=== PATIENT | female | born 1970 | race Caucasian/White ===

== ENCOUNTER → 2016-04-10 09:15 | Outpatient (CLI) | payer MEDICAID ==
[2015-02-01 10:11] VITALS: BMI 36.2
[~2016-04-10 09:15] MED LIST: CATAFLAM50 MG PO; DESERYL100 MG PO; GALZIN50 MG PO; HYDROCODONE-APA1 TAB PO; PROZAC40 MG PO; VENTOLIN HFA18 GM INH; VOLTAREN100 MG PO; XANAX1 MG PO; ZANAFLEX4 MG PO
== END | disposition home or self-care (01) ==
LOC: D.MRI 09:15
DX: M54.2 Cervicalgia (principal)

== ENCOUNTER 2016-10-11 17:37 | Emergency (ER) | payer MEDICAID ==
[2015-02-01 10:11] VITALS: BMI 36.2
== END 2016-10-11 19:42 | disposition home or self-care (01) ==
LOC: D.ER 17:37
DX: S16.1XXA Strain of muscle, fascia and tendon at neck level, initial encounter (principal); X58.XXXA Exposure to other specified factors, initial encounter; Y93.89 Activity, other specified; Y92.89 Other specified places as the place of occurrence of the external cause; S70.02XA Contusion of left hip, initial encounter; S40.012A Contusion of left shoulder, initial encounter; F17.200 Nicotine dependence, unspecified, uncomplicated; M54.2 Cervicalgia; M54.9 Dorsalgia, unspecified

== ENCOUNTER 2016-11-07 14:54 | Emergency (ER) | payer MEDICAID ==
[2015-02-01 10:11] VITALS: BMI 36.2
== END 2016-11-07 17:53 | disposition home or self-care (01) ==
LOC: D.ER 14:54
DX: S90.32XA Contusion of left foot, initial encounter (principal); W22.09XA Striking against other stationary object, initial encounter; Y93.89 Activity, other specified; Y92.013 Bedroom of single-family (private) house as the place of occurrence of the external cause; S93.602A Unspecified sprain of left foot, initial encounter; F17.200 Nicotine dependence, unspecified, uncomplicated

== ENCOUNTER 2016-12-05 17:23 | Emergency (ER) | payer MEDICAID ==
[2015-02-01 10:11] VITALS: BMI 36.2
== END 2016-12-05 18:43 | disposition home or self-care (01) ==
LOC: D.ER 17:23
DX: M79.672 Pain in left foot (principal); F17.200 Nicotine dependence, unspecified, uncomplicated

== ENCOUNTER → 2017-02-18 11:14 | Outpatient (CLI) | payer MEDICAID ==
[2015-02-01 10:11] VITALS: BMI 36.2
== END | disposition home or self-care (01) ==
LOC: D.MRI 11:14
DX: M79.672 Pain in left foot (principal); R22.42 Localized swelling, mass and lump, left lower limb; M54.5 Low back pain

== ENCOUNTER 2017-08-20 15:06 | Emergency (ER) | payer MEDICAID ==
[~2017-08-20] VITALS: Ht 172.7 cm; Wt 117.7 kg
[2017-08-20 15:48] VITALS: Ht 172.7 cm; Wt 117.7 kg
[2017-08-20] MEDS ORDERED: LATUDA40 MG PO (15:50)
[2017-08-20] MEDS ORDERED: NEURONTIN 300300 MG PO (15:50)
[2017-08-20] MEDS ORDERED: MOBIC7.5 MG PO (15:50)
[2017-08-20 19:08] LABS: BASOPHILS 0.2 % (0-2); EOSINOPHILS 2.6 % (0-7); HEMATOCRIT 35.7 % (36.0-48.0); HEMOGLOBIN 11.7 g/dL (12-16); IMMATURE GRANULOCYTES 0.2 % (0-5); LYMPHOCYTES 39.3 % (15-50); MCH 27.3 pg (26.0-34.0); MCHC 32.8 g/dL (31.0-37.0); MCV 83.4 fL (80.0-100.0); MEAN PLATELET VOLUME 9.7 fL (7.4-10.4); NEUTROPHILS 50.7 % (40-80); PLATELET COUNT 278 10x3/uL (130-400); RBC 4.28 10x6/uL (4.00-5.40); WBC 6.2 10x3/uL (4.8-10.8)
[2017-08-20 19:29] LABS: ALBUMIN 3.4 g/dL (3.4-5.0); ALKALINE PHOSPHATASE 111 U/L (46-116); ALT (SGPT) 44 U/L (10-68); BILIRUBIN - TOTAL 0.16 mg/dL (0.2-1.3); CALC OSMOLALITY 281 mosm/kg (275-300); CALCIUM 8.9 mg/dL (8.5-10.1); CARBON DIOXIDE 28.2 mmol/L (21.0-32.0); CHLORIDE - SERUM 104 mmol/L (98-107); CREATININE - SERUM 0.8 mg/dL (0.6-1.3); GLUCOSE 127 mg/dL (74-106); POTASSIUM - SERUM 3.7 mmol/L (3.5-5.1); PROTEIN - SERUM 7.1 g/dL (6.4-8.2); SODIUM 141 mmol/L (136-145); UREA NITROGEN 10 mg/dL (7-18); eGFR NON AFRICAN AMERICAN 81 mL/min (90-120)
[2017-08-20] MEDS ORDERED: BENZONATATE200 MG PO (20:58)
[2017-08-20 21:17] VITALS: BP 136/68
[2017-08-24 06:14] LABS: HEPATITIS C ANTIBODY <0.1 (0.0-0.9)
== END 2017-08-20 21:17 | disposition left against medical advice (07) ==
LOC: D.ER 15:06
PROVIDERS: Emergency Medicine; Family Medicine
DX: R76.11 Nonspecific reaction to tuberculin skin test without active tuberculosis (principal); R05 Cough; Z20.1 Contact with and (suspected) exposure to tuberculosis; F17.200 Nicotine dependence, unspecified, uncomplicated

== ENCOUNTER 2017-10-03 13:20 | Emergency (ER) | payer MEDICAID ==
[~2017-10-03] VITALS: Ht 172.7 cm; Wt 113.6 kg
[~2017-10-03 13:20] MED LIST changes: +BENZONATATE200 MG PO; +LATUDA40 MG PO; +MOBIC7.5 MG PO; +NEURONTIN 300300 MG PO
[2017-10-03 13:26] VITALS: Ht 172.7 cm; Wt 113.6 kg
[2017-10-03] MEDS ORDERED: VISTARIL25 MG PO (15:29)
[2017-10-03 15:33] VITALS: BP 136/082
== END 2017-10-03 15:34 | disposition home or self-care (01) ==
LOC: D.ER 13:20
DX: T78.49XA Other allergy, initial encounter (principal); X58.XXXA Exposure to other specified factors, initial encounter; F17.200 Nicotine dependence, unspecified, uncomplicated

== ENCOUNTER 2017-10-14 23:00 | Emergency (ER) | payer MEDICAID ==
[~2017-10-14] VITALS: Ht 172.7 cm; Wt 113.6 kg
[~2017-10-14 23:00] MED LIST changes: +VISTARIL25 MG PO
[2017-10-14 23:14] VITALS: Ht 172.7 cm; Wt 113.6 kg
[2017-10-15] MEDS ORDERED: CYCLOBENZAPRINE10 MG PO (01:03)
[2017-10-15] MEDS ORDERED: EC-NAPROSYN500 MG PO (01:03)
[2017-10-15 01:39] VITALS: BP 122/60
== END 2017-10-15 01:39 | disposition home or self-care (01) ==
LOC: D.ER 23:00
DX: S39.012A Strain of muscle, fascia and tendon of lower back, initial encounter (principal); X58.XXXA Exposure to other specified factors, initial encounter; Y93.89 Activity, other specified; Y92.019 Unspecified place in single-family (private) house as the place of occurrence of the external cause; M54.31 Sciatica, right side; F17.200 Nicotine dependence, unspecified, uncomplicated

== ENCOUNTER 2018-06-07 11:06 | Inpatient (IN) | payer MEDICAID ==
[~2018-06-07] VITALS: Ht 172.7 cm; Wt 93.2 kg
[2018-06-07] VITALS (7 sets, daily range): BP systolic 110–142; BP diastolic 37–68; Ht 172.7 cm; Wt 93.2 kg
[~2018-06-07 11:06] MED LIST changes: +CYCLOBENZAPRINE10 MG PO; +EC-NAPROSYN500 MG PO
--- NOTE | 2018-06-07 11:47 | NUR ---
PT CONTINUES TO BE VERY DROWSY AND FALLS ASLEEP DURING CONVERSATION. NARCAN 0.4 MG ADMIN SIVP, MORE ALERT, EYES OPENED POST NEWS WRITER
--- NOTE | 2018-06-07 11:49 | NUR ---
LAB AT FOR LAB DRAW
[2018-06-07 12:17] LABS: BASOPHILS 0.1 % (0-2); EOSINOPHILS 1.7 % (0-7); HEMATOCRIT 32.2 % (36.0-48.0); HEMOGLOBIN 10.4 g/dL (12-16); IMMATURE GRANULOCYTES 0.2 % (0-5); LYMPHOCYTES 16.3 % (15-50); MCH 27.6 pg (26.0-34.0); MCHC 32.3 g/dL (31.0-37.0); MCV 85.4 fL (80.0-100.0); MEAN PLATELET VOLUME 9.5 fL (7.4-10.4); MONOCYTES 8.2 % (2-11); NEUTROPHILS 73.5 % (40-80); PLATELET COUNT 271 10x3/uL (130-400); RBC 3.77 10x6/uL (4.00-5.40); RDW 14.6 % (11.5-14.5); WBC 12.8 10x3/uL (4.8-10.8)
[2018-06-07 12:25] LABS: ALBUMIN 3.3 g/dL (3.4-5.0); ALKALINE PHOSPHATASE 87 U/L (46-116); ALT (SGPT) 29 U/L (10-68); BILIRUBIN - TOTAL 0.23 mg/dL (0.2-1.3); CALC OSMOLALITY 274 mosm/kg (275-300); CALCIUM 8.6 mg/dL (8.5-10.1); CARBON DIOXIDE 29.4 mmol/L (21.0-32.0); CHLORIDE - SERUM 99 mmol/L (98-107); CREATININE - SERUM 1.6 mg/dL (0.6-1.3); GLUCOSE 146 mg/dL (74-106); PROTEIN - SERUM 6.6 g/dL (6.4-8.2); SODIUM 134 mmol/L (136-145); UREA NITROGEN 25 mg/dL (7-18); eGFR NON AFRICAN AMERICAN 36 mL/min (90-120)
[2018-06-07 12:36] LABS: AMYLASE - SERUM 34 U/L (25-115); CKMB 1.1 U/L (0.0-3.6); LIPASE 192 U/L (73-393); MAGNESIUM - SERUM 1.8 mg/dL (1.8-2.4); TROPONIN-I < 0.017 ng/mL (0.000-0.060)
--- NOTE | 2018-06-07 13:13 | NUR ---
TO CT VIA STRETCHER WITH LOAN AUDITOR PT AWAKE ALERT AND TAKATIVE. AMB TO BR BUT FAILED TO OBTAIN URINE SPECIMEN
--- NOTE | 2018-06-07 13:43 | NUR ---
RTN FROM CT. AMB TO BR WITH STEADY GAIT FOR UA
--- NOTE | 2018-06-07 13:50 | NUR ---
URINE SPECIMEN OBTAINED, LABELED AT BS AND SENT TO LAB
[2018-06-07 14:04] LABS: APPEARANCE CLEAR (CLEAR); BILIRUBIN NEGATIVE (NEGATIVE); COLOR STRAW (YELLOW); GLUCOSE NEGATIVE (NEGATIVE); KETONE NEGATIVE (NEGATIVE); NITRITE POSITIVE (NEGATIVE); PROTEIN NEGATIVE (NEGATIVE); SPECIFIC GRAVITY 1.015 (1.005-1.020); UROBILINOGEN NORMAL (NORMAL)
[2018-06-07 14:06] LABS: BACTERIA MODERATE /hpf (NONE SEEN); EPITHELIAL CELLS 0-5 /hpf (0-5); RED CELLS - URINE 0-5 /hpf (0-5); WHITE CELLS - URINE 0-5 /hpf (0-5)
[2018-06-07 14:08] LABS: UDS - AMPHET NEGATIVE QUAL (NEGATIVE); UDS - BARB NEGATIVE QUAL (NEGATIVE); UDS - BENZO POSITIVE QUAL (NEGATIVE); UDS - COCAINE NEGATIVE QUAL (NEGATIVE); UDS - OPIATE POSITIVE QUAL (NEGATIVE); UDS - PCP NEGATIVE QUAL (NEGATIVE); UDS - THC POSITIVE QUAL (NEGATIVE)
--- NOTE | 2018-06-07 17:17 | MORECARE ---
CASE MANAGEMENT DISCHARGE SUMMARY PATIENT: GALINDO HERRON UNIT: [id number] ADM DATE: 06/07/18 AGE: 48 : 66 SEX: F ROOM/BED: D.2216 AUTHOR: MALDONADODOC PHYSICIAN: REFERRING PHYSICIAN: ANAHI MARQUES MD DATE OF SERVICE: 06/07/18 Discharge Plan Patient Name: GALINDO HERRON Facility: [facility]:[place] : 1970 Planned Disposition: Home Anticipated Discharge Date: 06/09/18 Discharge Date: Expected LOS: 2 Initial Reviewer: [email or web address] Initial Review Date: 06/07/2018 Generated: 06/07/18 6:17 pm DCP- Discharge Planning Updated by [email or web address]: Perla Angulo on 06/07/18 4:[address] Patient Name: GALINDO HERRON Admission Status: ER Accout number: [id number] Admission Date: 06-07-2018 : 1970 Admission Diagnosis: Attending: ANAHI MARQUES Current LOS: 1 Anticipated DC Date: 06-09-2018 Planned Disposition: Home Primary Insurance: MEDICAID [place] Discharge Planning Comments: CM met with patient and her , Ricky Richards to complete initial dc planning assessment. CM educated patient on the CM role and verbal consent given by patient to complete assessment. Patient lives at home with her and is independent in her care. At discharge patient plans to return home and feels this is a safe discharge. CM discussed availability of home health, rehab services, and medical equipment. Patient denied known discharge needs at this time. CM will continue to follow and will assist as needed with dc plans/needs. Cycle Director: Perla Angulo RN, [facility] DCPIA - Discharge Planning Initial Assessment Updated by [email or web address]: Perla Angulo on 06/07/18 5:10 pm * Is the patient Alert and Oriented? Yes * How many steps to enter\exit or inside your home? None * PCP Dr. Bedoya * Pharmacy [facility] [address] * Preadmission Environment Home with Family * ADLs Independent * Equipment None * List name and contact numbers for known caregivers / representatives who currently or will assist patient after discharge: Ricky Richards - - [phone] Randal Herron - daughter - [phone] * Verbal permission to speak to the caregivers and representatives has been obtained from the patient. Yes * Community resources currently utilized None * Additional services required to return to the preadmission environment? No * Can the patient safely return to the preadmission environment? Yes * Has this patient been hospitalized within the prior 30 days at any hospital? No Patient Name: GALINDO HERRON Page [id number] at 1717 All edits/amendments must be made on the electronic document DICTATION DATE: 06/07/181716 STERILE PROCESS COORDINATOR: SKYE 06/07/181716 RPT#: [id number] DC DATE: STATUS: ADM IN [facility] [address] [place] [address] END OF REPORT
--- NOTE | 2018-06-07 18:16 | NUR ---
PATIENT ADMITTED TO ROOM 2216 FROM ER. ACCOMPANIED BY . C/O PNEUMONIA. LUNGS DIMINISHED IN BILATERAL LOWER LOBES. HEART SOUNDS S1 AND S2 HEARD IN ALL FISCHER. BOWEL SOUNDS ACTIVE X 4. SKIN INTACT WITHOUT REDNESS. IV TO LFA PATENT WITHOUT REDNESS. SKIN INTACT WITHOUT REDNESS. ASSISTED TO BATHROOM WITHOUT COMPLICATIONS. LARGE VOID NOTED. DENIES FURTHER NEEDS. WILL CONTINUE TO MONITOR.
--- NOTE | 2018-06-07 20:00 | NUR ---
ASSESSMENT PER FLOWSHEET. RECONNECTED IV OF NS AT 75CC'S/HR TO SALINE LOCK LEFT HAND.AWAKE ALERT ORIENTED X3. O2 ON AT 2L/M PER NC.NO S/S OF DISTRESS.
--- NOTE | 2018-06-07 20:15 | NUR ---
DR. MARQUES HERE ORDERS REC'D RENEWED [facility].
--- NOTE | 2018-06-07 22:00 | NUR ---
RESTING QUIETLY DENIES NEEDS.
--- NOTE | 2018-06-07 23:57 | NUR ---
EYES CLOSED RESPIRATIONS WITH EASE AND UNLABORED.
--- NOTE | 2018-06-08 02:53 | NUR ---
AWAKE UP AD CAROLINE TO BR VOIDS WELL. REQUESING PAIN PILL FOR CHRONIC BACK PAIN. NORCO 10/325MG PO GIVEN FOR BACK PAIN.
[2018-06-08 04:00] VITALS: BP 172/42
--- NOTE | 2018-06-08 04:25 | NUR ---
C/O NAUSEA NO EMESIS SEEN ZOFRAN 4MG IVP GIVEN FOR RELIEF OF NAUSEA.
[2018-06-08 05:35] LABS: BASOPHILS 0.1 % (0-2); EOSINOPHILS 3.2 % (0-7); HEMATOCRIT 32.8 % (36.0-48.0); HEMOGLOBIN 10.3 g/dL (12-16); IMMATURE GRANULOCYTES 0.3 % (0-5); LYMPHOCYTES 30.4 % (15-50); MCH 27.1 pg (26.0-34.0); MCHC 31.4 g/dL (31.0-37.0); MCV 86.3 fL (80.0-100.0); MEAN PLATELET VOLUME 9.6 fL (7.4-10.4); MONOCYTES 7.7 % (2-11); NEUTROPHILS 58.3 % (40-80); PLATELET COUNT 250 10x3/uL (130-400); RDW 14.9 % (11.5-14.5)
[2018-06-08 05:40] LABS: CALCIUM 8.3 mg/dL (8.5-10.1); CARBON DIOXIDE 29.6 mmol/L (21.0-32.0); POTASSIUM - SERUM 4.6 mmol/L (3.5-5.1)
--- NOTE | 2018-06-08 06:37 | NUR ---
RESTING QUIETLY DENIES NEEDS.
[2018-06-08 07:00] LABS: CREATININE - SERUM 1.1 mg/dL (0.6-1.3)
--- NOTE | 2018-06-08 08:18 | NUR ---
PT RESTING IN BED. DISCONNECTED IV PER PT REQUEST TO GO TO THE BR. NO S/S OF ACUTE DISTRESS. CL IN PLACE.
[2018-06-08 09:41] VITALS: BP 108/53
--- NOTE | 2018-06-08 09:45 | NUR ---
PT CO OF PAIN. WENT IN TO GIVE PT MEDICATION AND PT SNORING. EXPLIANED TO I WAS UNABLE TO GIVE MEDICATION IN THAT STATE. NO S/S OF ACUTE DISTRESS. CL IN PLACE.
[2018-06-08 11:39] LABS: % SATURATION 13 % (15-55); IRON 46 ug/dl (35-150); TOTAL IRON BIND CAPACITY 336 ug/dl (260-445); UNSAT IRON BIND CAPACITY 290 ug/dl (150-375)
[2018-06-08 15:09] VITALS: BP 112/54
[2018-06-08 16:00] VITALS: BP 107/53
--- NOTE | 2018-06-08 19:11 | NUR ---
PT RESTING IN BED. FAMILY AT BEDSIDE. CL IN PLACE. NO S/S OF ACUTE DISTRESS.
[2018-06-08 20:00] VITALS: BP 103/43
[2018-06-09] VITALS: BP 132/58
[2018-06-09 04:00] VITALS: BP 130/59
[2018-06-09 05:21] LABS: BASOPHILS 0.1 % (0-2); EOSINOPHILS 0.2 % (0-7); HEMATOCRIT 31.6 % (36.0-48.0); HEMOGLOBIN 10.4 g/dL (12-16); IMMATURE GRANULOCYTES 0.2 % (0-5); LYMPHOCYTES 18.7 % (15-50); MCHC 32.9 g/dL (31.0-37.0); MCV 84.9 fL (80.0-100.0); MEAN PLATELET VOLUME 9.8 fL (7.4-10.4); NEUTROPHILS 75.8 % (40-80); PLATELET COUNT 238 10x3/uL (130-400); RBC 3.72 10x6/uL (4.00-5.40); RDW 14.2 % (11.5-14.5)
[2018-06-09 05:23] LABS: WBC 9.7 10x3/uL (4.8-10.8)
[2018-06-09 05:27] LABS: ANION GAP 13.7 mmol/L (8-16); CALCIUM 8.5 mg/dL (8.5-10.1); CARBON DIOXIDE 26.3 mmol/L (21.0-32.0)
--- NOTE | 2018-06-09 07:42 | NUR ---
PT RESTING IN BED. SNORING. CHEST RISING AND FALLING. NO S/S OF ACUTE DISTRESS. CL IN PLACE.
[2018-06-09 08:36] VITALS: BP 107/55
[2018-06-09 11:21] LABS: FOLATE (FOLIC ACID) - SERUM 16.8 ng/mL (>3.0)
--- NOTE | 2018-06-09 11:24 | NUR ---
LATE ENTRY 1400 06/08/18. PT IV SWOLLEN AND INFILTRATED. DC IV WITH TIP IN TACT. ATTEMPTED TO RESITE X2. NO SUCCESS. CALLED JENNIFER, VASCULAR ACCESS WHO SITED R HAND PIV. FLUSHED WELL. 06/09/18 (1100) IV BURNING AND WILL NOT FLUSH. DC WITH TIP INTACT. PT "REFUSE TO HAVE ANOTHER IV". NO S/S OF ACUTE DISTRESS. CL IN PLACE.
[2018-06-09 12:07] VITALS: BP 118/68
[2018-06-09 16:45] VITALS: BP 161/67
--- NOTE | 2018-06-09 18:35 | NUR ---
PT REFUSING TO HAVE NEW IV RESITED. TOOK INSULIN AFTER EDUCATION ON HIGH FSBS. SPOKE WITH BOILERMAKER LOFTSMAN WHO ORDERED STAT CHEST XRAY AND WOULD DC PT IF THE XRAY WAS CLEAR. PT "WANTING TO LEAVE, SWITCH ALL TO BY MOUTH AND LET ME LEAVE" SPOKE WITH BOILERMAKER LOFTSMAN WHO STATED, "DR MARQUES WAS HERE AND WOULD SEE PT." NO S/S OF ACUTE DISTRESS. CL IN PLACE.
[2018-06-09] MEDS ORDERED: LEVAQUIN750 MG PO (19:56)
--- NOTE | 2018-06-09 21:15 | NUR ---
PT WAS ASSESSED AT THE BEGINNING OF THE SHIFT AND THEN SAW DR MARQUES. AT THAT TIME SHE WAS DISCHARGED. HE ONLY WROTE TO HAVE HER FOLLOW UP WITH DR CASTRO IN ONE WEEK AND TO CONTINUE HER HOME MEDS. HE DID NOT GIVE AN RX FOR ANTIBOTIC AND PT STATED THAT EVEN THOUGH IT WAS IN HER HOME MEDS THAT SHE DID NOT HAVE IT. A CALL WAS PLACED TO MD AND NO CALL WAS RETURNED. AFTER A HOUR WE DISCHARGED HER WITH INSTRUCTIONS TO LET MD KNOW IN THE MORNING THAT SHE DID NOT COME HOME WITH AN ANTIBOTIC AND NEEDED TO FOLLOW UP ALSO ON HER DIABETIC STATUS.
== END 2018-06-09 21:15 | disposition home or self-care (01) | DRG 194 ==
LOC: D.ER 11:06 → D.EDHOLD 15:28 → D.MS 15:28
PROVIDERS: Family Medicine; ADMIT Internal Medicine Nephrology; ATTEND Internal Medicine Nephrology
DX: J18.9 Pneumonia, unspecified organism (principal); J44.0 Chronic obstructive pulmonary disease with (acute) lower respiratory infection; N39.0 Urinary tract infection, site not specified; N17.9 Acute kidney failure, unspecified; F17.213 Nicotine dependence, cigarettes, with withdrawal; I10 Essential (primary) hypertension

== ENCOUNTER 2019-01-20 13:47 | Emergency (ER) | payer MEDICAID ==
[~2019-01-20] VITALS: Ht 172.7 cm; Wt 113.4 kg
[~2019-01-20 13:47] MED LIST changes: +LEVAQUIN750 MG PO
[2019-01-20 13:54] VITALS: BP 143/54; Ht 172.7 cm; Wt 113.4 kg
== END 2019-01-20 17:00 | disposition home or self-care (01) ==
LOC: D.ER 13:47
DX: M25.512 Pain in left shoulder (principal); M54.2 Cervicalgia; R10.9 Unspecified abdominal pain; R07.9 Chest pain, unspecified; R07.0 Pain in throat; Y04.2XXA Assault by strike against or bumped into by another person, initial encounter; Y93.9 Activity, unspecified; Y92.9 Unspecified place or not applicable; Z53.29 Procedure and treatment not carried out because of patient's decision for other reasons

== ENCOUNTER 2019-10-08 17:10 | Emergency (ER) | payer MEDICAID ==
[~2019-10-08] VITALS: Ht 172.7 cm; Wt 106.8 kg
[2019-10-08 17:19] VITALS: BP 135/63; Ht 172.7 cm; Wt 106.8 kg
== END 2019-10-08 19:37 | disposition left against medical advice (07) ==
LOC: D.ER 17:10
DX: T25.021A Burn of unspecified degree of right foot, initial encounter (principal)

== ENCOUNTER 2020-06-29 19:49 | Emergency (ER) | payer OTHER ==
[~2020-06-29] VITALS: Ht 172.7 cm; Wt 100.0 kg
[2020-06-29 20:00] VITALS: BP 100/64; Ht 172.7 cm; Wt 100.0 kg
[2020-06-29] MEDS ORDERED: OMNICEF300 MG PO (20:05)
[2020-06-29] MEDS ORDERED: LISINOPRIL20 MG PO (20:05)
[2020-06-29] MEDS ORDERED: NORVASC10 MG PO (20:06)
[2020-06-29] MEDS ORDERED: MOBIC7.5 MG (20:06)
[2020-06-29] MEDS ORDERED: GLUCOPHAGE500 MG PO (20:06)
[2020-06-29] MEDS ORDERED: OMEPRAZOLE40 MG PO (20:06)
[2020-06-29] MEDS ORDERED: VALIUM10 MG PO (20:06)
[2020-06-29] MEDS ORDERED: LEVAQUIN750 MG PO (21:22)
== END 2020-06-29 22:37 | disposition home or self-care (01) ==
LOC: D.ER 19:49
DX: H66.92 Otitis media, unspecified, left ear (principal); J32.9 Chronic sinusitis, unspecified; J44.9 Chronic obstructive pulmonary disease, unspecified; E11.9 Type 2 diabetes mellitus without complications; I10 Essential (primary) hypertension; F41.9 Anxiety disorder, unspecified; F32.9 Major depressive disorder, single episode, unspecified; Z72.0 Tobacco use; Z79.84 Long term (current) use of oral hypoglycemic drugs